=== PATIENT | male | born 1965 | race Two or more races ===

== ENCOUNTER 2021-05-14 09:11 | Emergency (ER) | payer OTHER ==
[~2021-05-14] VITALS: Ht 182.9 cm; Wt 122.5 kg
[2021-05-14] MEDS ORDERED: DILTIAZEM ER360 M1 PO (09:24)
[2021-05-14] MEDS ORDERED: CARDURA XL8 MG PO (09:24)
[2021-05-14] MEDS ORDERED: QUINAPRIL HCL40 MG PO (09:24)
[2021-05-14] MEDS ORDERED: MULTI VITAMIN1 EACH PO (09:25)
[2021-05-14] MEDS ORDERED: CIDAFLEX TABLE1 EACH PO (09:25)
[2021-05-14] MEDS ORDERED: INTESTINEX680 M1 PO (14:08)
[2021-05-14] MEDS ORDERED: DUI500 PO (14:08)
== END 2021-05-14 14:43 ==
LOC: ER 09:11
DX: L03.115 Cellulitis of right lower limb (principal); L03.116 Cellulitis of left lower limb; I10 Essential (primary) hypertension